=== PATIENT | female | born 1975 | race Caucasian/White ===

== ENCOUNTER 2016-09-05 14:48 | Emergency (ER) | payer OTHER ==
[2016-09-05 16:21] VITALS: BP 138/79
--- NOTE | 2016-09-05 16:36 | UC ---
Shortness of Breath HPI - HPI Summary HPI Summary: The patient comes in today for: 1. Left side shoulder pain: Onset: One week ago. Palliative/provocative: Ibuprofen 800 mg qhs helps the pain. Heating pack helps. Quality: Burning: Region: Anterior shoulder. Severity: 7/10 Time: Constant. Associated symptoms: Event: She was in the parking lot at work and with her slipping feet, she fell on her left side. She had pain right from the start. It has been getting worse. Home Rx: Ibuprofen. Numbness/weakness: No numbness or weakness. Occupation: [employer]. She is right handed. * - History of Current Complaint Chief Complaint: UCUpperExtremity Stated Complaint: SHOULDER INJURY Time Seen by Provider: 09/05/16 16:17 Hx Obtained From: Patient Hx Last Menstrual Period: 08/24/16 ?: No - Allergy/Home Medications Allergies/Adverse Reactions: Allergies Allergy/AdvReac Type Severity Reaction Status Date / Time No Known Allergies Allergy Verified 09/05/16 16:22 PMH/Surg Hx/FS Hx/Imm Hx Previously Healthy: No Endocrine History Of: Denies: Diabetes, Thyroid Disease, Hyperthyroidism, Hypothyroidism, Dyslipidemia Cardiovascular History Of: Denies: Cardiac Disorders, Hypertension, Pacemaker/ICD, Myocardial Infarction , Congestive Heart Failure, Atrial Fibrillation, Deep Vein Thrombosis, Bleeding Disorders Respiratory History Of: Reports: COPD - She has recently started an inhaler-- "the egg-shaped one you take once/d.", Asthma GI/ History Of: Reports: Gastroesophageal Reflux Denies: Ulcer, Gastrointestinal Bleed, Gall Bladder Disease, Kidney Stones, Diverticulitis, Renal Disease, Urosepsis Neurological History Of: Denies: TIA, CVA, Dementia, Seizures, Migraine Psychological History Of: Denies: Anxiety, Depression, Bipolar Disorder, Schizophrenia, Post Traumatic Stress Disorder Cancer History Of: Denies: Lung Cancer, Colorectal Cancer, Breast Cancer, Prostate Cancer, Cervical Cancer Other History Of: Negative For: HIV, Hepatitis B, Hepatitis C, Anticoagulant Therapy - Surgical History Surgical History: Yes Surgery Procedure, Year, and 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 - Family History Known Family History: Negative: Cardiac Disease, Hypertension - Social History Occupation: Employed Full-time Alcohol Use: Occasionally Substance Use Type: None Smoking Status (MU): Never Smoked Tobacco Type: Cigarettes Amount Used/How Often: quit 3 years ago Review of Systems Constitutional: Negative Skin: Negative Eyes: Negative ENT: Negative Respiratory: Negative Cardiovascular: Negative Gastrointestinal: Negative Genitourinary: Negative Musculoskeletal: Arthralgia, Myalgia All Other Systems Reviewed And Are Negative: Yes Physical Exam Triage Information Reviewed: Yes Appearance: Well-Appearing, No Pain Distress, Well-Nourished Vital Signs: Initial Vital Signs Temp 98.3 F 09/05/16 16:16 Pulse 63 09/05/16 16:16 Resp 18 09/05/16 16:16 BP 138/79 09/05/16 16:16 Pulse Ox 98 09/05/16 16:16 Vital Signs Reviewed: Yes Eyes: Positive: Conjunctiva Clear. Negative: Discharge ENT: Positive: Hearing grossly normal. Negative: Pharyngeal erythema, Nasal congestion, Nasal drainage, TM bulging, TM dull, TM red, Tonsillar swelling, Tonsillar exudate Dental: Negative: Gross Decay/Caries @, Dental Fracture @ Neck: Positive: Supple, Nontender, No Lymphadenopathy. Negative: Nuchal Rigidity Respiratory: Positive: Lungs clear, No respiratory distress, No accessory muscle use. Negative: Crackles, Wheezing Cardiovascular: Positive: RRR, No Murmur Abdomen Description: Positive: Nontender, No Organomegaly, Soft. Negative: Distended, Guarding Musculoskeletal: Positive: ROM Intact, Other: - Left shoulder: There was slight tenderness to palpation of the left anterior coracoid process area. There was tenderness to palpation of the AC joint. There was no distortion of the anatomy or step off at the AC joint. She had full adduction and abduction. There was no ecchymosis of the shoulder. She had no pain or weakness with her resistance to my trying to externally rotate the arms with her elbows by her side. There was slght tenderness and minimal weakness of her resistance to my internal rotation of her arms (injury possibly to subscapularis and/or teres minor). NVI. Neurological: Positive: Alert, Muscle Tone Normal Psychological: Positive: Age Appropriate Behavior, Decreased Age Appropriate Behavior Skin: Negative: rashes, breakdown Diagnostics - Laboratory Diagnostic Studies Completed/Ordered: Left shoulder: x-ray: negative. - Radiology No standard instances Xray Interpretation: No Acute Changes Radiology Interpretation Completed By: Radiologist Shortness of Breath Dx - Course Course Of Treatment: Tavon was told of her negative shoulder x-ray and a discussion took place regarding her treatment options. At this time she declined a sling and needed Naproxen and a work note. - Differential Dx/Diagnosis Provider Diagnoses: Left shoulder pain/strain. Discharge - Discharge Plan Condition: Stable Disposition: HOME Patient Education Materials: Shoulder Sprain (ED) Forms: *Work Release Referrals: Blayne Juárez MD [Primary Care Provider] - 1 Week (Please see your primary care provider in a week to see how well you are doing. If you get worse, please be seen sooner in the ER or through us.)
[2016-09-05] MEDS ORDERED: Naproxen TAB* 250 MG PO ONE (16:44)
--- NOTE | 2016-09-05 17:09 | RAD ---
HISTORY: Left shoulder pain after fall COMPARISONS: None VIEWS: 3, Frontal internal rotation, external rotation, and outlet views of the left shoulder FINDINGS: BONE DENSITY: Normal. BONES: There is no displaced fracture. JOINTS: There is no arthropathy. ALIGNMENT: There is no dislocation. SOFT TISSUES: Unremarkable. OTHER FINDINGS: None. IMPRESSION: NO ACUTE OSSEOUS INJURY. IF SYMPTOMS PERSIST, RECOMMEND REPEAT IMAGING.
== END 2016-09-05 17:33 | disposition home or self-care (01) ==
LOC: UCEAST 14:48
DX: S46.912A Strain of unspecified muscle, fascia and tendon at shoulder and upper arm level, left arm, initial encounter (principal); W01.0XXA Fall on same level from slipping, tripping and stumbling without subsequent striking against object, initial encounter; Y93.01 Activity, walking, marching and hiking; Y92.481 Parking lot as the place of occurrence of the external cause; Y99.0 Civilian activity done for income or pay; Z87.891 Personal history of nicotine dependence
CPT/HCPCS: 99212; A9270-GY; G0463

== ENCOUNTER 2016-09-11 07:53 | Emergency (ER) | payer BC ==
[2016-09-11 09:52] VITALS: BP 141/84
--- NOTE | 2016-09-19 15:40 | UC ---
Jessica [facility] Claudia, scribed for Paula Pichardo MD on 09/11/16 at 0837 . General HPI - HPI Summary HPI Summary: 40 year old female presents to the [facility] with multi-sx. Pt notes gradual progression of Sx over the past few days sudden onset Monday evening. PT admits to sore throat, cough, and chills. Pt notes that her cough is productive with green/yellow sputum. - History of Current Complaint Chief Complaint: UCRespiratory Stated Complaint: CHEST CONGESTION Time Seen by Provider: 09/11/16 08:27 Hx Obtained From: Patient Onset/Duration: Gradual Onset, Lasting Days, Still Present Timing: Constant Associated Signs & Symptoms: Positive: Cough - with green/yellow sputum, Other - chest congestion - Allergy/Home Medications Allergies/Adverse Reactions: Allergies Allergy/AdvReac Type Severity Reaction Status Date / Time No Known Allergies Allergy Verified 09/05/16 16:22 Home Medications: Home Medications Albuterol HFA INHALER* [Ventolin HFA Inhaler*] 09/11/16 [History] Fluticasone Furoate-Vilanterol [Breo Ellipta 200-25 Mcg/INH] 09/11/16 [History] [id number]-[place] [Guillermina-[place] Plus Day/Nig] 09/11/16 [History] PMH/Surg Hx/FS Hx/Imm Hx Previously Healthy: Yes Endocrine History Of: Denies: Diabetes, Thyroid Disease, Hyperthyroidism, Hypothyroidism, Dyslipidemia Cardiovascular History Of: Denies: Cardiac Disorders, Hypertension, Pacemaker/ICD, Myocardial Infarction , Congestive Heart Failure, Atrial Fibrillation, Deep Vein Thrombosis, Bleeding Disorders Respiratory History Of: Reports: COPD - She has recently started an inhaler-- "the egg-shaped one you take once/d.", Asthma GI/ History Of: Reports: Gastroesophageal Reflux Denies: Ulcer, Gastrointestinal Bleed, Gall Bladder Disease, Kidney Stones, Diverticulitis, Renal Disease, Urosepsis Neurological History Of: Denies: TIA, CVA, Dementia, Seizures, Migraine Psychological History Of: Denies: Anxiety, Depression, Bipolar Disorder, Schizophrenia, Post Traumatic Stress Disorder Cancer History Of: Denies: Lung Cancer, Colorectal Cancer, Breast Cancer, Prostate Cancer, Cervical Cancer Other History Of: Negative For: HIV, Hepatitis B, Hepatitis C, Anticoagulant Therapy - Surgical History Surgical History: Yes Surgery 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, 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, 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 - Family History Known Family History: Negative: Cardiac Disease, Hypertension - Social History Occupation: Employed Full-time Lives: With Family Alcohol Use: Occasionally Substance Use Type: None Smoking Status (MU): Former Smoker Type: Cigarettes Amount Used/How Often: quit 3 years ago Review of Systems Constitutional: Chills Skin: Negative Eyes: Negative ENT: Sore Throat, Other - chest congestion Respiratory: Cough Cardiovascular: Negative Gastrointestinal: Negative Genitourinary: Negative Motor: Negative Neurovascular: Negative Musculoskeletal: Negative Neurological: Negative Psychological: Negative All Other Systems Reviewed And Are Negative: Yes Physical Exam Triage Information Reviewed: Yes Appearance: Well-Nourished Vital Signs: Initial Vital Signs Temp 98.6 F 09/11/16 08:06 Pulse 72 09/11/16 08:06 Resp 16 09/11/16 08:06 BP 128/73 09/11/16 08:06 Pulse Ox 100 09/11/16 08:06 Vital Signs Reviewed: Yes Eye Exam: Normal ENT Exam: Normal ENT: Positive: Pharyngeal erythema, Other: - uvila edematous, airway is not obstructed posterior pharynx is erythematous bit no white spots are appreciated Neck exam: Normal Respiratory Exam: Normal Respiratory: Positive: Chest non-tender, Normal breath sounds, Rhonchi - right greater than the left, clears with cough, Wheezing - scattered Cardiovascular Exam: Normal Cardiovascular: Positive: RRR, No Murmur, Pulses Normal, Brisk Capillary Refill Abdominal Exam: Normal Abdomen Description: Positive: Nontender, No Organomegaly, Soft Musculoskeletal Exam: Normal Musculoskeletal: Positive: Strength Intact Neurological Exam: Normal - nonfocal grossly intact Psychological Exam: Normal - conversing easily and appropriately Skin Exam: Normal - no visible rashes Re-Evaluation - Re-Evaluation 1 Re-Evaluation Time: 09:23 Comment: Influenza rapid test results are discussed with pt. Pt refused inhaler refill Course/Dx - Course Course Of Treatment: No new problems in ccc,. considered differential diagnoses. - Differential Dx - Multi-Symptom Provider Diagnoses: Acute bronchitis w/ wheezing Discharge - Discharge Plan Condition: Stable Disposition: HOME Prescriptions: Azithromyxin SERGIO (NF) [Z-Sergio (Zithromax) 250 mg tabs #6] 2 tab PO .TODAY, THEN 1 DAILY #6 tab Patient Education Materials: Acute Bronchitis (ED), Bronchospasm (ED) Forms: *Work Release Referrals: Blayne Juárez MD [Primary Care Provider] - Additional Instructions: Follow up with your primary care physician, Dr. Juárez, per routine. Please seek medical attention sooner for worse or new problems. Influenza A/B test negative today. The documentation as recorded by the [facility] accurately reflects the service I personally performed and the decisions made by me, Paula Pichardo MD.
== END 2016-09-11 09:49 | disposition home or self-care (01) ==
LOC: UCEAST 07:53
DX: J20.9 Acute bronchitis, unspecified (principal); Z87.891 Personal history of nicotine dependence
CPT/HCPCS: 87502; 99212; G0463

== ENCOUNTER 2018-11-25 07:15 | Emergency (ER) | payer BC ==
[2018-11-25 07:36] VITALS: BP 119/62
--- NOTE | 2018-11-25 07:46 | UC ---
Nausea/Vomiting/Diarrhea HPI - HPI Summary HPI Summary: Patient is 42 year old female , who present today to the urgent care with diarrhea for past 3 days. She reports that on 11/22/18 , she ate store made tossed salad and started having loose stools about 2 hours after . Nobody else ate that salad . No recent antibiotic use She has been having worsening of diarrhea with 18-20 rest watery stools per day since. She denies any fever, nausea or vomiting. His able to tolerate liquid and solid diet. Denies any sick contact There is associated mild generalized lower abdominal pain. Denies any cough chest pain or shortness of breath . She tried over-the- counter Imodium without much relief. - History of Current Complaint Chief Complaint: UCRespiratory Stated Complaint: STOMACH ISSUES Time Seen by Provider: 11/25/18 07:43 Hx Obtained From: Patient Hx Last Menstrual Period: 11/16/18 ?: No Pain Intensity: 0 - Allergies/Home Medications Allergies/Adverse Reactions: Allergies Allergy/AdvReac Type Severity Reaction Status Date / Time No Known Allergies Allergy Verified 09/05/16 16:22 Home Medications: Home Medications Loperamide CAP* [Imodium CAP*] 1 cap PO Q4HR PRN MDD 6 11/25/18 [History Confirmed 11/25/18] PMH/Surg Hx/FS Hx/Imm Hx - Additional Past Medical History Additional PMH: COPD Asthma GERD Previously Healthy: Yes Other History Of: Negative For: HIV, Hepatitis B, Hepatitis C, Anticoagulant Therapy - Surgical History Surgical History: Yes Surgery Procedure, Year, and Place: bladder repair surgery - Family History Known Family History: Negative: Cardiac Disease, Hypertension - Social History Alcohol Use: Occasionally Substance Use Type: None Smoking Status (MU): Former Smoker Type: Cigarettes Amount Used/How Often: quit 3 years ago Review of Systems All Other Systems Reviewed And Are Negative: Yes Constitutional: Positive: Negative Skin: Positive: Negative Eyes: Positive: Negative ENT: Positive: Negative Respiratory: Positive: Negative Cardiovascular: Positive: Negative Gastrointestinal: Positive: Abdominal Pain, Diarrhea - Nose and watery. Negative: Vomiting, Nausea Genitourinary: Positive: Negative Motor: Positive: Negative Neurovascular: Positive: Negative Musculoskeletal: Positive: Negative Neurological: Positive: Negative Psychological: Positive: Negative Is Patient Immunocompromised?: No Physical Exam - Summary Physical Exam Summary: Physical Exam: Const: Appears well. No signs of apparent distress present. Alert and oriented x 3. Musculo: Walks with a normal gait. Head/Face: Atraumatic, normocephalic on inspection. Eyes: EOMI and PERRLA in both eyes. Conjunctivae clear. No discharge noted ENT: Hearing normal Respiratory: Respirations are unlabored. Lungs clear to auscultation bilaterally, no wheezing , rhonchi or rales noted . CVS: Regular rate and Rhythm, S1S2 normal , no murmurs identified. Extremities: Peripheral circulation is grossly normal. Pulses 2+ Abdomen : Soft mild generalized tenderness in the lower abdominal and in the right and the left lower quadrant, nondistended , Bowel sounds hypokinetic. No guarding , rebound tenderness or rigidity noted. Skin: No lesions or rash located on the upper extremities or on the lower extremities. Neuro: Cranial nerves II to XII intact, motor and sensory intact. DTR Intact bilaterally. Mood is normal. Affect is normal. Triage Information Reviewed: Yes Vital Signs: Initial Vital Signs Temp 99.4 F 11/25/18 07:28 Pulse 80 11/25/18 07:28 Resp 18 11/25/18 07:28 BP 119/62 11/25/18 07:28 Pulse Ox 97 11/25/18 07:28 Vital Signs Reviewed: Yes Naus/Vom/Diarrhea Course/Dx - Course Course Of Treatment: During the visit today, we tried to obtain the stool sample but she was unable to give it . She will be discharged home with a stool kit to bring in the sample. We also discussed that off treating with antibiotics but plan to hold off since we don't have a stool sample. We discussed that once she brings in the stool sample and at that time she wants antibiotics, she can be prescribed ciprofloxacin and Flagyl for 7 to 10 days We discussed the findings and further plan. Patient expressed understanding . - Differential Dx/Diagnosis Provider Diagnosis: Enterocolitis, Food poisoning Condition At Discharge: Stable Discharge - Sign-Out/Discharge Documenting (check all that apply): Patient Departure All imaging exams completed and their final reports reviewed: No Studies - Discharge Plan Condition: Stable Disposition: HOME Patient Education Materials: Acute Diarrhea (ED) Referrals: Blayne Juárez MD [Primary Care Provider] - 3 Days Additional Instructions: Please bring back the stool sample for further testing. Once we have the test results, somebody will call you and treat based on the findings. Keep yourself hydrated- Gatorade / electrolyte water will be better. Follow up with your primary care doctor in 2 - 3 days. Return to Urgent care / ER if symptoms get worse. - Billing Disposition and Condition Condition: STABLE Disposition: Home
--- NOTE | 2018-11-26 16:37 | UC ---
- Progress Note Progress Note: 11/26/2018 Stool culture: negative for shiga toxin 1&2, cryptosporidium and giardia. Still pending final reports. No change Adriane Whitman PA-C Course/Dx - Diagnoses Provider Diagnoses: Enterocolitis, Food poisoning Discharge - Sign-Out/Discharge Documenting (check all that apply): Post-Discharge Follow Up All imaging exams completed and their final reports reviewed: No Studies - Discharge Plan Condition: Stable Disposition: HOME Patient Education Materials: Acute Diarrhea (ED) Referrals: Blayne Juárez MD [Primary Care Provider] - 3 Days Additional Instructions: Please bring back the stool sample for further testing. Once we have the test results, somebody will call you and treat based on the findings. Keep yourself hydrated- Gatorade / electrolyte water will be better. Follow up with your primary care doctor in 2 - 3 days. Return to Urgent care / ER if symptoms get worse. - Billing Disposition and Condition Condition: STABLE Disposition: Home
== END 2018-11-25 08:41 | disposition home or self-care (01) ==
LOC: UCEAST 07:15
DX: K52.9 Noninfective gastroenteritis and colitis, unspecified (principal); T62.91XA Toxic effect of unspecified noxious substance eaten as food, accidental (unintentional), initial encounter; Y92.9 Unspecified place or not applicable; R10.84 Generalized abdominal pain; J44.9 Chronic obstructive pulmonary disease, unspecified; K21.9 Gastro-esophageal reflux disease without esophagitis; Z87.891 Personal history of nicotine dependence
CPT/HCPCS: 99211; G0463